=== PATIENT | male | born 1965 | race Caucasian/White ===

== ENCOUNTER 2018-10-30 09:54 | Outpatient (CLI) | payer BC ==
--- NOTE | 2018-10-30 11:14 | RAD ---
RIGHT SHOULDER 3 VIEWS: HISTORY: Right shoulder pain. FINDINGS: Some mild arthrosis of the AC joint. The glenohumeral joint space appears unremarkable. No acute shayy ny changes. IMPRESSION: Mild arthrosis of the acromioclavicular joint. POS: [facility]
== END 2018-10-30 09:55 | disposition home or self-care (01) ==
LOC: SCSRAD 09:54
PROVIDERS: ATTEND Nurse Practitioner Family
DX: M25.511 Pain in right shoulder (principal); M19.011 Primary osteoarthritis, right shoulder

== ENCOUNTER 2023-08-22 09:17 | Outpatient (CLI) | payer OTHER | END 2023-08-22 09:18 | disposition home or self-care (01) | LOC: SCSRAD 09:17 | PROVIDERS: ATTEND Nurse Practitioner Family | DX: M54.50 Low back pain, unspecified (principal); M47.816 Spondylosis without myelopathy or radiculopathy, lumbar region | CPT/HCPCS: 72100 ==